=== PATIENT | female | born 1960 | race Caucasian/White ===

== ENCOUNTER → 2017-12-11 | Outpatient (CLI) | payer BC ==
--- NOTE | 2017-12-13 07:32 | MM ---
Reason for exam: screening (asymptomatic). Last mammogram was performed 1 year and 2 months ago. History: Patient is postmenopausal and had first child at age 38. Physical Findings: A clinical breast exam by your physician is recommended on an annual basis and results should be correlated with mammographic findings. MG 3D Screening Mammo W/Cad Bilateral CC and MLO view(s) were taken. Prior study comparison: October 18, 2016, bilateral MG 3d screening mammo w/cad. October 15, 2015, bilateral MG screening mammo w CAD. The breast tissue is heterogeneously dense. This may lower the sensitivity of mammography. No suspicious abnormality. No significant changes when compared with prior studies. ASSESSMENT: Negative, BI-RAD 1 RECOMMENDATION: Routine screening mammogram of both breasts in 1 year.
== END | disposition home or self-care (01) ==
LOC: RADMAMWWP 15:02
PROVIDERS: ATTEND Obstetrics & Gynecology
DX: Z12.31 Encounter for screening mammogram for malignant neoplasm of breast (principal)
CPT/HCPCS: 77063; 77067

== ENCOUNTER → 2017-12-11 | Outpatient (CLI) | payer BC ==
--- NOTE | 2017-12-11 16:16 | BD ---
EXAMINATION TYPE: MG DEXA axial skeleton. DATE OF EXAM: 12/11/2017 COMPARISON: NONE CLINICAL HISTORY: 56 year-old female age related osteoporosis without pathologic fracture Height: 62 Weight: 206.0 FRAX RISK QUESTIONS: Alcohol (3 or more units per day): no Family History (Parent hip fracture): no Glucocorticoids (More than 3mos): no (Ex: prednisone, prednisolone, methylprednisolone, dexamethasone, and hydrocortisone). History of Fracture in Adulthood: no Secondary Osteoporosis: 1. Type 1 Diabetes: no 2. Hyperthyroidism: no 3. Menopause before 45: no 4. Malnutrition: no 5. Chronic liver disease: no Rheumatoid Arthritis: no Current Tobacco Use: no RISK FACTORS HISTORY OF: Surgery to Spine/Hip(right/left)/Wrist (right/left): no Family History of Osteoporosis: yes Active: yes Diet low in dairy products/other sources of calcium: no Postmenopausal woman: age 54 Lost more than 2 inches in height since high school: no Frequent falls: no Poor Health: no Adrenal Insufficiency: no MEDICATIONS: blood pressure meds , vit b12 injections, vit d Thyroid Medications: thyroid How Lon years Additional History: EXAM MEASUREMENTS: Bone mineral densitometry was performed using the [employer] System. Bone mineral density as measured about the Lumbar spine is: ----- L1-L4(G/cm2): 1.027 T Score Values are as follows: ----- L2: -2.0 ----- L3: -0.9 ----- L4: -1.1 ----- L1-L4: -1.3 Bone mineral density has: decreased -2.2 % since study of: 08.16.2016 Bone mineral density about the R hip (g/cm2): 0.784 Bone mineral density about the L hip (g/cm2): 0.846 T Score values are as follows: -----R Neck: -1.8 -----L Neck: -1.4 -----R Total: -1.5 -----L Total: -1.1 Bone mineral density has: increased 1.6 % since study of: 08.16.2016 IMPRESSION: Osteopenia (T Score between -2.5 and -1). There is slightly increased risk of fracture and the patient may be considered for treatment. Re-Screen 2-5 years. NOTE: T-SCORE=SD OF THE YOUNG ADULT MEAN.
== END | disposition home or self-care (01) ==
LOC: RADBDWWP 15:05
PROVIDERS: ATTEND Internal Medicine
DX: M85.80 Other specified disorders of bone density and structure, unspecified site (principal)
CPT/HCPCS: 77080

== ENCOUNTER → 2019-01-15 | Outpatient (CLI) | payer BC ==
--- NOTE | 2019-01-15 10:47 | MM ---
Reason for exam: screening (asymptomatic). Last mammogram was performed 1 year and 1 month ago. History: Patient is postmenopausal and had first child at age 38. Physical Findings: A clinical breast exam by your physician is recommended on an annual basis and results should be correlated with mammographic findings. MG 3D Screening Mammo W/Cad Bilateral CC and MLO view(s) were taken. Prior study comparison: December 11, 2017, bilateral MG 3d screening mammo w/cad. October 18, 2016, bilateral MG 3d screening mammo w/cad. The breast tissue is heterogeneously dense. This may lower the sensitivity of mammography. No suspicious abnormality. No significant changes when compared with prior studies. ASSESSMENT: Negative, BI-RAD 1 RECOMMENDATION: Routine screening mammogram of both breasts in 1 year.
== END ==
LOC: RADMAMWWP 08:25
PROVIDERS: ATTEND Obstetrics & Gynecology
DX: Z12.31 Encounter for screening mammogram for malignant neoplasm of breast (principal)
CPT/HCPCS: 77063; 77067

== ENCOUNTER → 2019-07-01 | Outpatient (CLI) | payer BC ==
--- NOTE | 2019-07-01 15:49 | NM ---
EXAMINATION TYPE: NM parathyroid DATE OF EXAM: 07/01/2019 COMPARISON: 09/06/2010 HISTORY: Elevated PTH TECHNIQUE: Following administration of 24.7 mCi Tc99m Sestamibi. Anterior projection images of the neck and ches t were obtained 10 minutes and 3 hours post injection FINDINGS: Thyroid tracer washout: Delayed images demonstrate near-complete tracer washout from the thyroid. Parathyroid uptake: None. The two-hour delayed images do not demonstrate any focal abnormal persisten t uptake in the region of the parathyroid glands to suggest parathyroid adenoma. Normal uptake: There is physiological tracer uptake in the myocardium, liver, salivary glands, and th yroid gland. IMPRESSION: Normal parathyroid imaging study. No evidence for mediastinal uptake to suggest mediastinal parathyro id adenoma
== END | disposition home or self-care (01) ==
LOC: RADNMMAIN 11:10
PROVIDERS: ATTEND Internal Medicine
DX: E21.3 Hyperparathyroidism, unspecified (principal)
CPT/HCPCS: 78070; A9500

== ENCOUNTER → 2020-03-30 | Outpatient (CLI) | payer BC ==
--- NOTE | 2020-03-31 12:29 | MM ---
Reason for exam: screening (asymptomatic). Last mammogram was performed 1 year and 2 months ago. History: Patient is postmenopausal and had first child at age 38. Physical Findings: A clinical breast exam by your physician is recommended on an annual basis and results should be correlated with mammographic findings. MG 3D Screening Mammo W/Cad Bilateral CC and MLO view(s) were taken. Prior study comparison: January 15, 2019, bilateral MG 3d screening mammo w/cad. December 11, 2017, bilateral MG 3d screening mammo w/cad. The breast tissue is heterogeneously dense. This may lower the sensitivity of mammography. No suspicious abnormality. No significant changes when compared with prior studies. ASSESSMENT: Negative, BI-RAD 1 RECOMMENDATION: Routine screening mammogram of both breasts in 1 year.
== END | disposition home or self-care (01) ==
LOC: RADMAMWWP 10:55
PROVIDERS: ATTEND Internal Medicine
DX: Z12.31 Encounter for screening mammogram for malignant neoplasm of breast (principal)
CPT/HCPCS: 77063; 77067

== ENCOUNTER → 2020-08-21 | Outpatient (CLI) | payer BC ==
--- NOTE | 2020-08-21 15:03 | BD ---
EXAMINATION TYPE: Axial Bone Density DATE OF EXAM: 08/21/2020 COMPARISON: DEXA bone scan December 11, 2017 CLINICAL HISTORY: Postmenopausal female with known osteoporosis. Height: 62 Weight: 206.3 FRAX RISK QUESTIONS: Alcohol (3 or more units per day): no Family History (Parent hip fracture): no Glucocorticoids (More than 3mos): no (Ex: prednisone, prednisolone, methylprednisolone, dexamethasone, and hydrocortisone). History of Fracture in Adulthood: no Secondary Osteoporosis: 1. Type 1 Diabetes: no 2. Hyperthyroidism: no 3. Menopause before 45: no 4. Malnutrition: no 5. Chronic liver disease: no Rheumatoid Arthritis: no Current Tobacco Use: no RISK FACTORS HISTORY OF: Family History of Osteoporosis: yes Active: yes Diet low in dairy products/other sources of calcium: no Postmenopausal woman: age 49 Lost more than 2 inches in height since high school: no MEDICATIONS: vit d, lisinopril, atorvastatin Thyroid Medications: thyroid How Lon years Additional History: EXAM MEASUREMENTS: Bone mineral densitometry was performed using the [employer] System. Bone mineral density as measured about the Lumbar spine is: ----- L1-L4(G/cm2): 1.023 T Score Values are as follows: ----- L2: -2.0 ----- L3: -0.9 ----- L4: -0.9 ----- L1-L4: -1.3 Bone mineral density has: increased 0.7 % since study of: 12.11.2017 Bone mineral density about the R hip (g/cm2): 0.817 Bone mineral density about the L hip (g/cm2): 0.833 T Score values are as follows: -----R Neck: -1.6 -----L Neck: -1.5 -----R Total: -1.3 -----L Total: -0.5 Bone mineral density has: increased 5.2 % since study of: 12.11.2017 IMPRESSION: Osteopenia (T Score between -2.5 and -1) remains present. There remains slightly increased risk of fracture and the patient may be considered for treatment. Re-Screen 2-5 years. NOTE: T-SCORE=SD OF THE YOUNG ADULT MEAN.
== END | disposition home or self-care (01) ==
LOC: RADBDWWP 14:10
PROVIDERS: ATTEND Internal Medicine
DX: M85.80 Other specified disorders of bone density and structure, unspecified site (principal)
CPT/HCPCS: 77080

== ENCOUNTER → 2021-02-17 | Outpatient (CLI) | payer BC ==
--- NOTE | 2021-02-17 15:53 | NM ---
EXAMINATION TYPE: NM parathyroid w/spect DATE OF EXAM: 02/17/2021 COMPARISON: NONE HISTORY: Hyperparathyroidism TECHNIQUE: Following administration of 24.7 mCi Tc99m Sestamibi. Anterior projection images of the neck and ches t were obtained 10 minutes and 3 hours post injection. SPECT images of the neck and chest were obtai sybil and reconstructed in three axes. FINDINGS: Thyroid tracer washout: Delayed images demonstrate near-complete tracer washout from the thyroid. Parathyroid uptake: None. The two-hour delayed images do not demonstrate any focal abnormal persisten t uptake in the region of the parathyroid glands to suggest parathyroid adenoma. Normal uptake: There is physiological tracer uptake in the myocardium, liver, salivary glands, and th yroid gland. IMPRESSION: Normal parathyroid imaging study. No evidence for mediastinal uptake to suggest mediastinal parathyro id adenoma
== END | disposition home or self-care (01) ==
LOC: RADNMMAIN 11:14
PROVIDERS: ATTEND Internal Medicine
DX: E21.3 Hyperparathyroidism, unspecified (principal)
CPT/HCPCS: 78071; A9500

== ENCOUNTER → 2021-05-04 | Outpatient (CLI) | payer BC ==
--- NOTE | 2021-05-06 09:18 | MM ---
Reason for exam: screening (asymptomatic). Last mammogram was performed 1 year and 1 month ago. History: Patient is postmenopausal and had first child at age 38. Physical Findings: A clinical breast exam by your physician is recommended on an annual basis and results should be correlated with mammographic findings. MG 3D Screening Mammo W/Cad Bilateral CC and MLO view(s) were taken. Prior study comparison: March 30, 2020, bilateral MG 3d screening mammo w/cad. January 15, 2019, bilateral MG 3d screening mammo w/cad. There are scattered fibroglandular densities. ASSESSMENT: Negative, BI-RAD 1 RECOMMENDATION: Routine screening mammogram of both breasts in 1 year.
== END | disposition home or self-care (01) ==
LOC: RADMAMWWP 15:13
PROVIDERS: ATTEND Obstetrics & Gynecology
DX: Z12.31 Encounter for screening mammogram for malignant neoplasm of breast (principal); Z78.0 Asymptomatic menopausal state
CPT/HCPCS: 77063; 77067

== ENCOUNTER → 2022-02-23 | Outpatient (CLI) | payer BC ==
--- NOTE | 2022-02-23 14:01 | MM ---
Reason for exam: additional evaluation requested from prior study. Last mammogram was performed 10 months ago. History: Patient is postmenopausal and had first child at age 38. Physical Findings: A clinical breast exam by your physician is recommended on an annual basis and results should be correlated with mammographic findings. MG 3D Diag Mammo W/Cad SADIE Bilateral CC and MLO view(s) were taken. Prior study comparison: May 04, 2021, bilateral MG 3d screening mammo w/cad. March 30, 2020, bilateral MG 3d screening mammo w/cad. There are scattered fibroglandular densities. There is no discrete abnormality including area of concern right breast marked. No significant new findings when compared with previous films. Results were given to the patient verbally at the time of the exam. ASSESSMENT: Incomplete: need additional imaging evaluation, BI-RAD 0 RECOMMENDATION: Ultrasound of the right breast.
--- NOTE | 2022-02-23 14:03 | USB ---
Reason for exam: additional evaluation requested from abnormal screening. History: Patient is postmenopausal and had first child at age 38. Physical Findings: A clinical breast exam by your physician is recommended on an annual basis and results should be correlated with mammographic findings. US Breast Limited RT Right limited breast ultrasound including focal area of concern, retroareolar and axilla demonstrates a 1.5 x 2.3 x 1.4cm mixed lesion at 10 o'clock, 5cm from nipple, indistinct borders, correlates with palpable. Results were given to the patient verbally at the time of the exam. ASSESSMENT: Suspicious, BI-RAD 4 RECOMMENDATION: Ultrasound core biopsy of the right breast. Called Dr. Reyes's office with mammographic findings and has scheduled an appointment for the patient for 03/07/22 at 10:[address] Rutledge. Biopsy scheduled for 03/03/22 at 10 o'clock. PRELIMINARY REPORT CALLED AND FAXED TO DR. RUTLEDGE ON 02/23/22.
== END | disposition home or self-care (01) ==
LOC: RADMAMWWP 08:17
PROVIDERS: ATTEND Obstetrics & Gynecology
DX: N63.0 Unspecified lump in unspecified breast (principal); Z78.0 Asymptomatic menopausal state
CPT/HCPCS: 77062; 77066

== ENCOUNTER → 2022-04-12 | Outpatient (CLI) | payer BC ==
--- NOTE | 2022-04-12 14:40 | USB ---
Reason for Exam: Follow-up at short interval from prior study. Patient History: Menarche at age 12. First Full-Term at age 38. Late child-bearing (after 30). Postmenopausal. 03/01/2022, US discontinued breast bx RT on the right side. Risk Values: Susan 5 year model risk: 2.1%. NCI Lifetime model risk: 9.4%. Technique: Method: Targeted. Prior Study Comparison: 03/30/2020 Bilateral Screening Mammogram, [facility]. 05/04/2021 Bilateral Screening Mammogram, [facility]. 02/23/2022 Bilateral Diagnostic Mammogram, [facility]. Findings: The area of palpable concern of the right breast was scanned. A persistent nonshadowing hyperechoic nonvascular genic 2.2 cm lesion on the prior exam now measures approximately 1 cm and has reduced in size.. Overall Assessment: Probably benign, BI-RAD 3 Management: Diagnostic Breast Ultrasound of the right breast in 1 month. A clinical breast exam by your physician is recommended on an annual basis and results should be correlated with mammographic findings. Electronically signed and approved by: Noah King M.D. Radiologis
== END | disposition home or self-care (01) ==
LOC: RADUSWWP 14:08
PROVIDERS: ATTEND Obstetrics & Gynecology
DX: R92.8 Other abnormal and inconclusive findings on diagnostic imaging of breast (principal); Z78.0 Asymptomatic menopausal state

== ENCOUNTER → 2022-05-13 | Outpatient (CLI) | payer BC ==
--- NOTE | 2022-05-13 15:19 | USB ---
Reason for Exam: Follow-up at short interval from prior study. Patient History: Menarche at age 12. First Full-Term at age 38. Late child-bearing (after 30). Postmenopausal. 03/01/2022, US discontinued breast bx RT on the right side. Risk Values: Susan 5 year model risk: 2.1%. NCI Lifetime model risk: 9.4%. Technique: Method: Targeted. Prior Study Comparison: 03/30/2020 Bilateral Screening Mammogram, [facility]. 05/04/2021 Bilateral Screening Mammogram, [facility]. 02/23/2022 Bilateral Diagnostic Mammogram, [facility]. Findings: The upper outer quadrant of the right breast, the axilla of the left breast and the retroareolar of the left breast were scanned. Previously noted lesion is no longer visible. No distinct solid or cystic masses seen at this time.. Overall Assessment: Negative, BI-RAD 1 Management: Screening Mammogram of both breasts in 9 months. A clinical breast exam by your physician is recommended on an annual basis and results should be correlated with mammographic findings. Electronically signed and approved by: José Antonio Fernandez M.D. Radiologis
== END | disposition home or self-care (01) ==
LOC: RADUSWWP 14:53
PROVIDERS: ATTEND Student in an Organized Health Care Education/Training Program
DX: R92.8 Other abnormal and inconclusive findings on diagnostic imaging of breast (principal); Z78.0 Asymptomatic menopausal state

== ENCOUNTER 2022-09-13 13:30 | Emergency (ER) | payer BC, OTHER ==
[2022-09-13] MEDS ORDERED: HYDROcodone/APAP 5-325MG 1 EACH TAB PO STA ×2 (13:45→15:41)
[2022-09-13 13:54] VITALS: RESP 18; TEMP 96.9
--- NOTE | 2022-09-13 14:02 | ED ---
Fall HPI - General Chief Complaint: Fall Stated Complaint: Fall Time Seen by Provider: 09/13/22 13:32 Source: patient, RN notes reviewed Mode of arrival: EMS - History of Present Illness Initial Comments: This is a 61-year-old female who presents to the emergency department for a fall. 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 She fell backwards and injured her lower back, the back of her head, and her left wrist. Denies any dizziness, chest pain, or shortness of breath prior to the fall. Denies any loss of consciousness. She does not take any blood thinners. Most of the pain is in her left wrist and lower back. Denies any fevers, chills, sore throat, cough, dyspnea, chest pain, palpi tations, abdominal pain, nausea, vomiting, diarrhea, or headaches. MD Complaint: fall When Fall Occurred: 1 [address] [employer] Fall Occurred: work Loss of Consciousness: none Location: head, back Location - Extremities: Left: Forearm Context: tripped/slipped - Related Data Home Medications Medication Instructions Recorded Confirmed Ergocalciferol [Vitamin D2 50,000 unit PO WE 09/07/16 09/13/22 (DRISDOL)] Levothyroxine Sodium [Synthroid] 75 mcg PO DAILY 09/07/16 09/13/22 lisinopriL [Lisinopril] 5 mg PO DAILY 09/07/16 09/13/22 Atorvastatin [Lipitor] 40 mg PO HS 02/23/22 09/13/22 Previous Rx's Medication Instructions Recorded HYDROcodone/APAP 5-325MG [[place] 1 tab PO Q6HR PRN 3 Days #12 tab 09/13/22 5-325] Ibuprofen [Motrin] 800 mg PO Q8H PRN #20 tab 09/13/22 Allergies Allergy/AdvReac Type Severity Reaction Status Date / Time Penicillins Allergy Unknown Verified 09/13/22 14:31 Childhood shellfish derived [Shellfish] Allergy Nausea & Verified 09/13/22 14:31 Vomiting Review of Systems ROS Statement: Those systems with pertinent positive or pertinent negative responses have been documented in the HPI. ROS Other: All systems not noted in ROS Statement are negative. Past Medical History Past Medical History: Hyperlipidemia, Hypertension, Thyroid Disorder Additional Past Medical History / Comment(s): asthma as a child History of Any Multi-Drug Resistant Organisms: None Reported Additional Past Surgical History / Comment(s): dental surgery Past Anesthesia/Blood Transfusion Reactions: Family History of Problems w/ Anesthesia Additional Past Anesthesia/Blood Transfusion Reaction / Comment(s): father slow to come out of anesthesia Past Psychological History: No Psychological Hx Reported Smoking Status: Former smoker Past Alcohol Use History: Rare Past Drug Use History: None Reported - Past Family History Mother Family Medical History: Cancer Additional Family Medical History / Comment(s): LUNG Brother(s) Family Medical History: Cancer Additional Family Medical History / Comment(s): LUNG General Exam Limitations: physical limitation General appearance: alert, in no apparent distress Head exam: Present: other (Hematoma to the right side of the occiput) Eye exam: Present: normal appearance, PERRL, EOMI. Absent: scleral icterus, conjunctival injection, periorbital swelling Respiratory exam: Present: normal lung sounds bilaterally. Absent: respiratory distress, wheezes, rales, rhonchi, stridor Cardiovascular Exam: Present: regular rate, normal rhythm, normal heart sounds. Absent: systolic murmur, diastolic murmur, rubs, gallop, clicks Extremities exam: Present: other (Tenderness and swelling over the medial and lateral aspects of the left wrist. 2+ radial pulses and capillary refill less than 1 second bilaterally. Limited range of motion secondary to pain.) Back exam: Present: normal inspection, tenderness (lumbar spine). Absent: full ROM (secondary to pain) Neurological exam: Present: alert, oriented X3, CN II-XII intact Psychiatric exam: Present: normal affect, normal mood Skin exam: Present: warm, dry, intact, normal color. Absent: rash Course Vital Signs 09/13/22 09/13/22 13:34 15:58 Temperature 96.9 F L Pulse Rate 70 82 Respiratory 18 18 Rate Blood Pressure 115/65 119/60 O2 Sat by Pulse 96 Oximetry Procedures - Orthopedic Splinting/Casting Injury #1 Side: left Upper Extremity Injury Location: wrist Upper Extremity Immobilizer: volar splint Medical Decision Making - Medical Decision Making This is a 61-year-old female who presents to the emergency department for a fall. X-ray of the left wrist obtained, and on my interpretation there is an impacted fracture of the distal radius. There also appears to be an avulsion fracture of the ulnar styloid. X-ray of the lumbar spine obtained as well, and on my interpretation this reveals a compression fracture of L1. The radiologist states that the age is indeterminate. Computed tomography scan of the brain and C-spine obtained as well, I do not identify any signs of a skull fracture, intracranial hemorrhage, or mass effect. Findings discussed with the patient. She was put in a volar splint for the distal radius fracture. Information for orthopedic follow-up was provided for the radial fracture and the lumbar compression fracture, however we discussed that this may have been from an injury prior to the fall, there is no way to know for sure based on our evaluation here. Instructed her to apply ice for 10-15 minutes every 2-3 hours and to alternate with ibuprofen and Tylenol for the pain. Prescription for ibuprofen 800 mg provided. She was also given a short course of [place], which I advised she use very sparingly when her pain is the most severe, and I advised she avoid driving or operating machinery when taking this. Recommended she avoid any excess bending or physical activity for the meantime due to the compression fracture until told otherwise by orthopedics. Return precautions reviewed in depth, the patient is instructed to return to the emergency department with any new, worsening, or concerning symptoms. Patient verbalized understanding. This case was discussed in detail with the attending ED physician. Presentation, findings, and treatment plan discussed in detail as well. - Radiology Data Radiology results: report reviewed, image reviewed Disposition Clinical Impression: Fall, Head contusion, Distal radius fracture, left, Compression fracture of L1 lumbar vertebra Disposition: HOME SELF-CARE Instructions (If sedation given, give patient instructions): Wrist Fracture in Adults (ED), Vertebral Compression Fracture (ED), Splint Care (ED) Additional Instructions: Return to the emergency department with any new, worsening, or concerning symptoms. Ice the wrist for 10-15 minutes every 2-3 hours and keep it elevated. Alternate with ibuprofen and Tylenol for pain relief and take the [place] when your pain is the most severe. Contact orthopedics as listed below for a follow- up appointment. You do also have a compression fracture in your lower back, which may be old or new. Be sure to discuss this with orthopedics as well. Avoid any excess bending or high impact activities for the meantime. Follow up with your primary care provider in 1-2 days. Prescriptions: Ibuprofen [Motrin] 800 mg PO Q8H PRN #20 tab PRN Reason: Pain HYDROcodone/APAP 5-325MG [[place] 5-325] 1 tab PO Q6HR PRN 3 Days #12 tab PRN Reason: Pain Is patient prescribed a controlled substance at d/c from ED?: Yes When asked, does pt state using other controlled substances?: No If prescribed controlled substance>3 days was MAPS reviewed?: Prescribed <3 Days Referrals: Sinai Zamudio MD [Primary Care Provider] - 1-2 days Deb Mendieta DO [Doctor of Osteopathic Medicine] - 1-2 days
--- NOTE | 2022-09-13 14:16 | XR ---
EXAM TYPE: LUMBAR SPINE X RAY SERIES COMPARISON: NONE HISTORY: Pain TECHNIQUE: 4 views are submitted. FINDINGS: Alignment is anatomic. The pedicles are intact. The transverse processes are intact. There is diff use osteopenia with multilevel degenerative disc disease. As the grade 1 anterolisthesis of L3 relati ve to L4. There is a mild superior endplate compression fracture of L1. Diffuse osteopenia. IMPRESSION: 1. Multilevel degenerative disc disease. 2. There is a mild superior endplate compression fracture L1 of indeterminate age. Recommend follow-u p MRI.
--- NOTE | 2022-09-13 14:19 | XR ---
EXAMINATION TYPE: XR wrist complete LT DATE OF EXAM: 09/13/2022 COMPARISON: NONE HISTORY: Pain TECHNIQUE: Three views submitted. FINDINGS: There is a comminuted intra-articular fracture of the distal radius. Avulsion fracture of the ulnar s tyloid. Diffuse osteopenia. There is adjacent soft tissue edema. IMPRESSION: 1. Comminuted impacted intra-articular fracture distal radius. 2. Avulsion fracture ulnar styloid.
--- NOTE | 2022-09-13 14:44 | CT ---
EXAMINATION TYPE: CT brain cspine wo con CT DLP: 1920.8 mGycm, Automated exposure control for dose reduction was used. DATE OF EXAM: 09/13/2022 2:25 PM COMPARISON: None.. CLINICAL INDICATION:Female, 61 years old with history of Fall; TECHNIQUE: Brain: Multiple axial CT images of the brain were obtained without IV contrast. Cspine: Axial CT images from the skull base to the inferior aspect of T2 we obtained without intraven ous contrast. Coronal and sagittal reformatted images were also reviewed. FINDINGS: Brain: Extra-axial spaces: No abnormal extra-axial fluid collections. Ventricular system: Within normal limits Cerebral parenchyma: No acute intraparenchymal hemorrhage or mass effect. The rogers-white junction is well differentiated. Cerebellum: Unremarkable. Mass effect: No evidence of midline shift. Intracranial vasculature: unremarkable Soft tissues: Normal. Calvarium/osseous structures: No depressed skull fracture. Paranasal sinuses and mastoid air cells: The mastoid air cells are clear. Minimal mucosal thickening of the right maxillary sinus. Visualized orbits: Orbital contents are intact. Cervical spine: Fracture: None. Osseous structures: Unremarkable Vertebral alignment: Degenerative disc disease at C5-C6 with disc space narrowing, endplate sclerosis , and osteophytosis Spinal canal/Neural Foramina: Disc osteophyte complex at C5-C6 with at least mild spinal canal narrow ing. No evidence for significant neural foraminal stenosis. Neck soft tissues: Prevertebral soft tissues are within normal limits. Other: The airway is patent. The lung apices are clear. IMPRESSION: 1. No acute intracranial process. 2. No evidence of cervical spine fracture. 3. Mild multilevel degenerative disc disease at C5-C6.
[2022-09-13 16:01] VITALS: BP 119/60; PULSE 82
== END 2022-09-13 16:03 | disposition home or self-care (01) ==
LOC: EC 13:30
DX: S52.502A Unspecified fracture of the lower end of left radius, initial encounter for closed fracture (principal); S32.019A Unspecified fracture of first lumbar vertebra, initial encounter for closed fracture; S00.93XA Contusion of unspecified part of head, initial encounter; E78.5 Hyperlipidemia, unspecified; I10 Essential (primary) hypertension; E07.9 Disorder of thyroid, unspecified; Z79.890 Hormone replacement therapy; Z79.02 Long term (current) use of antithrombotics/antiplatelets; Z88.0 Allergy status to penicillin; Z91.013 Allergy to seafood; Z79.899 Other long term (current) drug therapy; Z87.891 Personal history of nicotine dependence; W01.0XXA Fall on same level from slipping, tripping and stumbling without subsequent striking against object, initial encounter; Y92.219 Unspecified school as the place of occurrence of the external cause
CPT/HCPCS: 29125; 70450; 72100; 72125; 99284

== ENCOUNTER → 2023-02-14 | Outpatient (CLI) | payer BC ==
--- NOTE | 2023-02-15 07:47 | MM ---
Reason for Exam: Screening (asymptomatic). Last screening mammogram was performed 11 month(s) ago. Patient History: Menarche at age 12. First Full-Term at age 38. Late child-bearing (after 30). Postmenopausal. 03/01/2022, US discontinued breast bx RT on the right side. Risk Values: Susan 5 year model risk: 2.2%. NCI Lifetime model risk: 9.1%. Prior Study Comparison: 03/30/2020 Bilateral Screening Mammogram, [facility]. 05/04/2021 Bilateral Screening Mammogram, [facility]. 02/23/2022 Bilateral Diagnostic Mammogram, [facility]. Tissue Density: The breast tissue is heterogeneously dense. This may lower the sensitivity of mammography. Findings: Analyzed By CAD. There are benign-appearing bilateral axillary lymph nodes redemonstrated. There is no suspicious group of microcalcifications or new suspicious mass in either breast. Overall Assessment: Negative, BI-RAD 1 Management: Screening Mammogram of both breasts in 1 year. A clinical breast exam by your physician is recommended on an annual basis and results should be correlated with mammographic findings. Some advise bilateral breast ultrasound surveillance in patients with background dense tissue. Electronically signed and approved by: Amandeep Sibley M.D.
== END | disposition home or self-care (01) ==
LOC: RADMAMWWP 16:02
PROVIDERS: ATTEND Internal Medicine
DX: Z12.31 Encounter for screening mammogram for malignant neoplasm of breast (principal); Z78.0 Asymptomatic menopausal state
CPT/HCPCS: 77063; 77067

== ENCOUNTER → 2023-08-22 | Outpatient (CLI) | payer BC ==
--- NOTE | 2023-08-22 12:26 | US ---
EXAMINATION TYPE: US kidneys/renal and bladder DATE OF EXAM: 08/22/2023 COMPARISON: CT 2015 CLINICAL INDICATION: Female, 62 years old with history of N18.1 CHRONIC KIDNEY DISEASE, STAGE 1; CKD stage 1. EXAM MEASUREMENTS: Right Kidney: 10.4 x 4.8 x 4.7 cm Left Kidney: 11.4 x 5.0 x 5.2 cm Right Kidney: Renal pelvis appears dilated. Left Kidney: Anechoic area seen lower pole: 1.4 x 0.9 x 1.0 cm may be a small peripelvic cyst. Bladder: Appears wnl Bilateral Jets seen: Yes IMPRESSION: 1. Small left renal peripelvic cysts
--- NOTE | 2023-08-22 13:27 | BD ---
EXAMINATION TYPE: Axial Bone Density DATE OF EXAM: 08/22/2023 CLINICAL HISTORY: 62 years old Female. ICD-10 CODE: M85.851 OSTEOPENIA RT HIP Height: 61 Weight: 159 FRAX RISK QUESTIONS: Family History (Parent hip fracture): yes RISK FACTORS HISTORY OF: hx of foot fx as an adult History of Wrist Fracture: left wrist 2021 Family History of Osteoporosis: yes Postmenopausal woman: at 49 Hyperparathyroidism: no Adrenal Insufficiency: no MEDICATIONS: Thyroid Medications: yes, for about 5 yrs, synthroid product Additional Medications: bp meds, vit d, statin for cholesterol, Additional History: weight loss, cholesterol, hypertension, EXAM MEASUREMENTS: Bone mineral densitometry was performed using the [facility]. Bone mineral density as measured about the Lumbar spine is: ----- L1-L4(G/cm2): 1.007 T Score Values are as follows: ----- L1: -2.1 ----- L2: -1.6 ----- L3: -0.9 ----- L4: -1.5 ----- L1-L4: -1.4 Z Score Values are as follows: ----- L1: -0.9 ----- L2: -0.3 ----- L3: 0.4 ----- L4: -0.3 ----- L1-L4: -0.2 Bone mineral density has: Decreased -1.6% since study of: 08.21.2020 Bone mineral density about the R hip (g/cm2): 0.808 Bone mineral density about the L hip (g/cm2): 0.905 T Score values are as follows: -----R Neck: -1.9 -----L Neck: -1.5 -----R Total: -1.6 -----L Total: -0.8 Z Score values are as follows: -----R Neck: -0.7 -----L Neck: -0.3 -----R Total: -0.6 -----L Total: 0.1 Bone mineral density has: Decreased -3.8% since study of: 08.21.2020 FRAX%s: The graph provided illustrates a 30.1% chance for a major osteoporotic fx and a 2.4% chance f or the hips probability for fx in 10 years time. IMPRESSION: Osteopenia (T Score between -2.5 and -1). There is slightly increased risk of fracture and the patient may be considered for treatment. Re-Screen 2-5 years. NOTE: T-SCORE=SD OF THE YOUNG ADULT MEAN.
== END | disposition home or self-care (01) ==
LOC: RADUSWWP 08:58
PROVIDERS: ATTEND Internal Medicine
DX: N18.1 Chronic kidney disease, stage 1 (principal); N28.1 Cyst of kidney, acquired; M85.89 Other specified disorders of bone density and structure, multiple sites; Z78.0 Asymptomatic menopausal state
CPT/HCPCS: 76770; 77080

== ENCOUNTER → 2024-04-09 | Outpatient (CLI) | payer BC ==
--- NOTE | 2024-04-11 13:09 | MM ---
Reason for Exam: Screening (asymptomatic). Last mammogram was performed 1 year(s) and 2 month(s) ago. Patient History: Menarche at age 12. First Full-Term at age 38. Late child-bearing (after 30). Postmenopausal. 03/01/2022, US discontinued breast bx RT on the right side. Risk Values: Susan 5 year model risk: 2.2%. NCI Lifetime model risk: 8.9%. Prior Study Comparison: 05/04/2021 Bilateral Screening Mammogram, [facility]. 02/23/2022 Bilateral Diagnostic Mammogram, [facility]. 02/14/2023 Bilateral MG 3D screening mammo w/cad, [facility]. Tissue Density: The breasts are heterogeneously dense, which may obscure small masses. Findings: Analyzed By CAD. Right breast: There is no suspicious group of microcalcifications or new suspicious mass. Left breast: Focal asymmetry left breast upper outer quadrant 6.8 cm from the nipple. Overall Assessment: Incomplete: need additional imaging evaluation, BI-RAD 0 Management: Diagnostic Mammogram of the left breast. [facility] will attempt to contact patient to return for supplemental views and ultrasound if indicated. Patient should continue monthly self-breast exams. A clinical breast exam by your physician is recommended on an annual basis. This exam should not preclude additional follow-up of suspicious palpable abnormalities. Note on Susan scores and lifetime risk: 1. A Susan score greater than 3% is considered moderate risk. If this is the case, consider specialist referral to assess eligibility for a risk reducing agent. 2. If overall lifetime risk for the development of breast cancer is 20% or higher, the patient may qualify for future screening with alternating mammogram and breast MRI. Electronically signed and approved by: Dagoberto Argueta DO
== END | disposition home or self-care (01) ==
LOC: RADMAMWWP 15:13
PROVIDERS: ATTEND Internal Medicine
DX: Z12.31 Encounter for screening mammogram for malignant neoplasm of breast (principal); Z78.0 Asymptomatic menopausal state
CPT/HCPCS: 77063; 77067

== ENCOUNTER → 2024-04-12 | Outpatient (CLI) | payer BC ==
--- NOTE | 2024-04-12 08:15 | MM ---
Reason for Exam: Additional evaluation requested from abnormal screening. Last screening mammogram was performed less than 1 month ago. Patient History: Menarche at age 12. First Full-Term at age 38. Late child-bearing (after 30). Postmenopausal. 03/01/2022, US discontinued breast bx RT on the right side. Risk Values: Susan 5 year model risk: 2.2%. NCI Lifetime model risk: 8.9%. Prior Study Comparison: 02/23/2022 Bilateral Diagnostic Mammogram, [facility]. 02/14/2023 Bilateral MG 3D screening mammo w/cad, [facility]. 04/09/2024 Bilateral MG 3D screening mammo w/cad, [facility]. Tissue Density: Left: The breasts are heterogeneously dense, which may obscure small masses. Findings: Analyzed By CAD. Under compression the focal asymmetry appears to disperse normally. No underlying spiculated or lobulated mass is identified. No suspicious groups of microcalcifications, spiculated or lobular masses, architectural distortion or other secondary signs of malignancy are mammographically apparent. Overall Assessment: Probably benign, BI-RAD 3 Management: Diagnostic Mammogram of the left breast in 6 months. A negative mammogram report should not preclude additional follow up of suspicious palpable abnormalities. Patient should continue monthly self breast exam. A clinical breast exam by your physician is recommended on an annual basis and results should be correlated with mammographic findings. Note on Susan scores and lifetime risk: 1. A Susan score greater than 3% is considered moderate risk. If this is the case, consider specialist referral to assess eligibility for a risk reducing agent. 2. If overall lifetime risk for the development of breast cancer is 20% or higher, the patient may qualify for future screening with alternating mammogram and breast MRI. Electronically signed and approved by: Afshin Jenkins D.O. Radiologis
== END | disposition home or self-care (01) ==
LOC: RADMAMWWP 07:22
PROVIDERS: ATTEND Internal Medicine
DX: R92.332 Mammographic heterogeneous density, left breast (principal); R92.8 Other abnormal and inconclusive findings on diagnostic imaging of breast; Z78.0 Asymptomatic menopausal state
CPT/HCPCS: 77061; 77065

== ENCOUNTER → 2024-05-14 | Outpatient (CLI) | payer BC ==
[2024-05-14 10:04] VITALS: BP 107/72; PULSE 85; RESP 17; TEMP 98
--- NOTE | 2024-05-14 11:11 | P.HPOB ---
History of Present Illness H&P Date: 05/14/24 Chief Complaint: The patient is here for her routine gynecologic exam. This is a 63-year-old -1-1-1 with an LMP of 2009. The patient is here to establish with this office. It has been about 1 and half years since her last pelvic exam. She previously saw Dr. Reyes for her gynecologic care and saw him since approximately 1998. She states she has had regular pelvic exams and regular Pap smears. She has no history of cervical neoplasia. She is without gynecologic complaints and denies any postmenopausal bleeding. Review of Systems She has lost about 95 pounds over the past 2 years. Most of this weight loss was done while she was on Wegovy. She denies respiratory, cardiac, or GI problems. Past Medical History Past Medical History: Asthma, Hyperlipidemia, Hypertension, Sleep Apnea/CPAP/B IPAP, Thyroid Disorder Additional Past Medical History / Comment(s): asthma as a child. Parathyroid problems not requiring medication. Osteopenia. PAST LONG TERM CARE ADMINISTRATOR HISTORY: She has no history of STDs. History of Any Multi-Drug Resistant Organisms: None Reported Additional Past Surgical History / Comment(s): dental surgery. Wrist surgery 2021. Colonoscopy. Past Anesthesia/Blood Transfusion Reactions: Family History of Problems w/ Anesthesia Additional Past Anesthesia/Blood Transfusion Reaction / Comment(s): father slow to come out of anesthesia Past Psychological History: No Psychological Hx Reported Smoking Status: Former smoker Past Alcohol Use History: Rare Additional Past Alcohol Use History / Comment(s): started smoking age 13 quit age 30 1ppd Past Drug Use History: None Reported - Past Family History Mother Family Medical History: Cancer, Hypertension, Thyroid Disorder Additional Family Medical History / Comment(s): LUNG cancer. She denies family history of cancer of the breast, uterus, ovaries, or colon Brother(s) Family Medical History: Cancer Additional Family Medical History / Comment(s): LUNG cancer. Father Family Medical History: Diabetes Mellitus, Hypertension, Myocardial Infarction (PR) Medications and Allergies Home Medications Medication Instructions Recorded Confirmed Type Levothyroxine Sodium [Synthroid] 75 mcg PO DAILY 09/07/16 05/14/24 History lisinopriL [Lisinopril] 5 mg PO DAILY 09/07/16 05/14/24 History Atorvastatin [Lipitor] 40 mg PO HS 02/23/22 05/14/24 History Semaglutide [Wegovy] 1 mg INJ WEEKLY 05/14/24 05/14/24 History Allergies Allergy/AdvReac Type Severity Reaction Status Date / Time Penicillins Allergy Unknown Verified 05/14/24 10:00 Childhood shellfish derived [Shellfish] Allergy Nausea & Verified 05/14/24 10:00 Vomiting Exam Vital Signs Temp Pulse Resp BP Pulse Ox 05/14/24 10:01 98 F 85 17 107/72 98 Intake and Output 05/13/24 05/14/24 05/14/24 22:59 06:59 14:59 Other: Weight 60.781 kg Height 5 feet 2 inches, weight 134 pounds, BMI 24.5. This is a well-developed well-nourished white female who is alert and oriented times 3 in no acute distress. HEENT: Within normal limits. NECK: Supple without mass or thyromegaly. CHEST AND LUNGS: Clear to auscultation. HEART: Regular rate and rhythm. BREASTS: Are without mass or discharge. AXILLARY EXAM: Negative for adenopathy. BACK: Negative for CVA tenderness. ABDOMEN: Soft, nontender, without palpable masses. PELVIC EXAM: Normal external genitalia with mild atrophy. Cervix and vagina appear normal with mild atrophy. Cervix is anterior. There is no unusual discharge. There is no evidence of prolapse. The uterus is retroverted, nongravid size and nontender. There are no palpable adnexal masses or tenderness. RECTAL EXAM: Rectovaginal exam is negative for mass or tenderness and is negative for occult blood. EXTREMITIES: Nontender. IMPRESSION: 1. 63-year-old menopausal female with normal gynecologic exam. 2. History of osteopenia PLAN: 1. Pap smear cotest was performed. If this is negative we will plan on discontinuing Pap smears since she has no history of cervical neoplasia and has had regular exams with Dr. Reyes since 1998. 2. Self breast awareness was discussed with the patient. We have also discussed symptoms associated with inflammatory breast cancer. 3. Screening mammogram done on 04/09/2024 did require a left breast workup which was done on 04/12/2024 and was probably benign. 6-month diagnostic left mammogram was recommended. The order slip was given to the patient for this. 4. Osteoporosis prevention was discussed. I have stressed the importance of adequate calcium, vitamin D and regular exercise. Recommended amounts of calcium and vitamin D were also discussed. Her last bone density test was done on 08/22/2023. I have recommended that she repeat this after 2 to 3 years. 5. Colorectal cancer screening was most recently done with [facility]. She will continue to do this through her PCP. 6. She was advised to return in one year for her annual well woman exam.
== END ==
LOC: WWCWWP 09:47
PROVIDERS: ATTEND Obstetrics & Gynecology
DX: Z01.419 Encounter for gynecological examination (general) (routine) without abnormal findings (principal); M85.80 Other specified disorders of bone density and structure, unspecified site; Z78.0 Asymptomatic menopausal state; Z88.0 Allergy status to penicillin; Z91.013 Allergy to seafood; Z87.891 Personal history of nicotine dependence

== ENCOUNTER → 2024-09-17 | Outpatient (CLI) | payer BC ==
--- NOTE | 2024-09-17 16:28 | US ---
EXAMINATION TYPE: US carotid duplex BILAT DATE OF EXAM: 09/17/2024 COMPARISON: NONE CLINICAL INDICATION: Female, 63 years old with history of I65.23 STENOSIS I25.10 HEART DISEASE; steno sis Additional History: .... TECHNIQUE: Grayscale, color Doppler and spectral Doppler evaluation of the bilateral carotid systems and vertebral arteries. Indirect Doppler criteria was utilized. FINDINGS: EXAM MEASUREMENTS: RIGHT: Peak Systolic Velocity (PSV) cm/sec ----- Right CCA: 72.8 ----- Right ICA: 101 ----- Right ECA: 76 ICA/CCA ratio: 1.4 RIGHT: End Diastole cm/sec ----- Right CCA: 19.5 ----- Right ICA: 40.9 ----- Right ECA: 13.6 LEFT: Peak Systolic Velocity (PSV) cm/sec ----- Left CCA: 78 ----- Left ICA: 84.5 ----- Left ECA: 61.1 ICA/CCA ratio: 1.1 LEFT: End Diastole cm/sec ----- Left CCA: 19.5 ----- Left ICA: 33.8 ----- Left ECA: 14.9 VERTEBRALS (direction of flow): Right Vertebral: Antegrade Left Vertebral: Antegrade Rhythm: Normal TIN FLOPPER NOTES: No significant stenosis seen Color Doppler imaging shows patency with blood flow throughout the carotid artery. Spectral waveforms are within normal limits. IMPRESSION: No ultrasound evidence for hemodynamically significant stenosis of the bilateral visualized carotid a rterial systems. Criteria for Assigning % of Stenosis / Diameter reduction (Estimation based on the indirect measurements of the internal carotid artery velocities (ICA PSV). 1. Normal (no stenosis)=ICA PSV < 125 cm/s: ratio < 2.0: ICA EDV<40 cm/s. 2. Less than 50% stenosis=ICA PSV < 125 cm/s: ratio < 2.0: ICA EDV<40 cm/s. 3. 50 to 69% stenosis=ICA PSV of 125 to 230 cm/s: ration 2.0 ? 4.0: ICA EDV 40-100 cm/s. 4. Greater than 70% stenosis to near occlusion= ICA PSV > 230 cm/s: ratio > 4.0: ICA EDV > 100 cm/s. 5. Near occlusion= ICA PSV velocities may be low or undetectable: variable ratio and ICA EDV. 6. Total occlusion=unable to detect flow. [facility], , 09/17/2024 4:26 PM
--- NOTE | 2024-09-18 07:08 | CA ---
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 67 - 155 / 56 - 104 cm??? LV Systolic Volume MOD BP 40.1 cm??? - 58 / 19 - 49 cm??? LV Ejection Fraction MOD BP 47.5 % >= 55 % LV Cardiac Index MOD BP 1618.0 cm???/min???m??? LV Diastolic Volume MOD 4C 98.5 cm??? LV Systolic Volume MOD 4C 50.7 cm??? LV Ejection Fraction MOD 4C 48.5 % LV Cardiac Index MOD 4C 2130.4 cm???/min???m??? LV Diastolic Length 4C 7.8 cm LV Systolic Length 4C 6.6 cm LV Diastolic Volume MOD 2C 52.7 cm??? LV Systolic Volume MOD 2C 31.7 cm??? LV Ejection Fraction MOD 2C 39.9 % LV Cardiac Index MOD 2C 939.0 cm???/min???m??? LV Diastolic Length 2C 6.8 cm LV Systolic Length 2C 5.9 cm LA Volume 39.5 cm??? - 58 / 22 - 52 cm??? LA Volume Index 24.5 cm???/m??? 16 - 28 cm???/m??? M-MODE Aortic Root Diameter MM 3.0 cm AV Cusp Separation MM 2.0 cm DOPPLER AV Peak Velocity 113.3 cm/s AV Peak Gradient 5.1 mmHg MV Area PHT 2.5 cm??? Mitral E Point Velocity 55.9 cm/s Mitral A Point Velocity 77.4 cm/s Mitral E to A Ratio 0.7 MV Deceleration Time 302.7 ms TR Peak Velocity 210.4 cm/s TR Peak Gradient 17.7 mmHg Right Ventricular Systolic Press 22.6 mmHg FINDINGS Left Ventricle Left ventricular ejection fraction is estimated at 45-50 %. Mildly decreased left ventricular ejection fraction. Inferior and septal hypokinesis. Left ventricular cavity size normal. Left ventricular wall thickness normal. Right Ventricle Normal right ventricular size and function. Right ventricular systolic pressure within normal limits. Right Atrium Normal right atrial size. No right atrial thrombus or mass seen. Left Atrium Normal left atrial size. No left atrial thrombus or mass present. Mitral Valve Structurally normal mitral valve. Mild mitral regurgitation. Aortic Valve Trileaflet aortic valve. No aortic valve stenosis or regurgitation. Tricuspid Valve Structurally normal tricuspid valve. Mild tricuspid regurgitation. Pulmonic Valve Pulmonic valve not well visualized. Trace pulmonic regurgitation. Pericardium No pericardial or pleural effusion. Aorta Normal size aortic root and proximal ascending aorta. CONCLUSIONS 1. Mildly impaired left ventricular systolic function with segmental wall motion abnormality 2. Mild mitral and tricuspid regurgitation Previewed by: Dr. Rika Dalton MD (Electronically Signed) Final Date: 18 September 2024 07:07
== END | disposition home or self-care (01) ==
LOC: RADUSWWP 15:45
PROVIDERS: ATTEND Internal Medicine
DX: I65.23 Occlusion and stenosis of bilateral carotid arteries (principal)
CPT/HCPCS: 93306; 93880

== ENCOUNTER → 2024-10-14 | Outpatient (CLI) | payer BC ==
--- NOTE | 2024-10-14 13:25 | MM ---
Reason for Exam: Follow-up at short interval from prior study. Last screening mammogram was performed 6 month(s) ago. Patient History: Menarche at age 12. First Full-Term at age 38. Late child-bearing (after 30). Postmenopausal. 03/01/2022, US discontinued breast bx RT on the right side. Risk Values: Susan 5 year model risk: 2.2%. NCI Lifetime model risk: 8.9%. Prior Study Comparison: 02/14/2023 Bilateral MG 3D screening mammo w/cad, [facility]. 04/09/2024 Bilateral MG 3D screening mammo w/cad, [facility]. 04/12/2024 Left MG 3D work up w/cad , [facility]. Tissue Density: Left: The breasts are heterogeneously dense, which may obscure small masses. Findings: Analyzed By CAD. The previously seen upper outer quadrant focal asymmetry has not persisted. Findings compatible superimposition shadow. No significant change. Overall Assessment: Benign, BI-RAD 2 Management: Screening Mammogram of both breasts in 6 months. Results were given to the patient verbally at the time of exam. Patient should continue monthly self-breast exams. A clinical breast exam by your physician is recommended on an annual basis. This exam should not preclude additional follow-up of suspicious palpable abnormalities. Note on Susan scores and lifetime risk: 1. A Susan score greater than 3% is considered moderate risk. If this is the case, consider specialist referral to assess eligibility for a risk reducing agent. 2. If overall lifetime risk for the development of breast cancer is 20% or higher, the patient may qualify for future screening with alternating mammogram and breast MRI. [facility], , 10/14/2024 1:21 PM. Electronically signed and approved by: Hanny Landin M.D. Radiologist
== END | disposition home or self-care (01) ==
LOC: RADMAMWWP 12:51
PROVIDERS: ATTEND Obstetrics & Gynecology
DX: R92.8 Other abnormal and inconclusive findings on diagnostic imaging of breast (principal); Z78.0 Asymptomatic menopausal state; R92.332 Mammographic heterogeneous density, left breast
CPT/HCPCS: 77061; 77065

== ENCOUNTER → 2024-11-04 | Outpatient (CLI) | payer BC ==
--- NOTE | 2024-11-04 16:45 | NM ---
EXAMINATION TYPE: NM parathyroid w/spect DATE OF EXAM: 11/04/2024 COMPARISON: NONE CLINICAL INDICATION: Female, 63 years old with history of R79.89 elevated parathyroid levels; TECHNIQUE: Following administration of 25.6 mCi Tc99m Sestamibi. Anterior projection images of the neck and ches t were obtained 10 minutes and 3 hours post injection. SPECT images of the neck and chest were obtai sybil and reconstructed in three axes. FINDINGS: Thyroid tracer washout: Delayed images demonstrate near-complete tracer washout from the thyroid. Parathyroid uptake: None. The two-hour delayed images do not demonstrate any focal abnormal persisten t uptake in the region of the parathyroid glands to suggest parathyroid adenoma. Normal uptake: There is physiological tracer uptake in the myocardium, liver, salivary glands, and th yroid gland. IMPRESSION: Normal parathyroid imaging study. No evidence for mediastinal uptake to suggest mediastinal parathyro id adenoma [facility], , 11/04/2024 4:42 PM
== END | disposition home or self-care (01) ==
LOC: RADNMMAIN 10:45
PROVIDERS: ATTEND Internal Medicine
DX: R79.89 Other specified abnormal findings of blood chemistry (principal)
CPT/HCPCS: 78071; A9500

== ENCOUNTER → 2024-12-20 | Outpatient (CLI) | payer BC, MEDICARE ==
--- NOTE | 2024-12-20 12:39 | NM ---
EXAMINATION TYPE: NM stress cardiolite complete DATE OF EXAM: 12/20/2024 COMPARISON: NONE CLINICAL INDICATION: Female, 64 years old with history of I51.9 HEART DISEASE, UNSPECIFIED; history o f hypertension and hypercholesterolemia. TECHNIQUE: After the intravenous administration of 10.0 mCi Tc 99m Sestamibi - Rest images obtained 45 minutes post injection. The patient exercised using a AVEL protocol and 1 minute prior to peak exercise was injected with 26.2 mCi Tc 99m Sestamibi - Stress images obtained 55 minutes post injecti on. FINDINGS: Targeted heart rate was achieved during performance of the study. Review of stress and rest SPECT meghana ges demonstrates no distinct perfusion abnormality. Gated analysis shows normal wall motion with an estimated left ventricular ejection fraction of 60 %. IMPRESSION: No scintigraphic evidence for reversible ischemia [facility], , 12/20/2024 12:37 PM
--- NOTE | 2024-12-20 12:42 | CA ---
Exercise Nuclear Stress Test Report Name: Ml Alvarado Exam Date: 12/20/2024 09:52 Exam Location: [place] [facility] Ht (in): 62 Wt (lb): 132 BSA: 1.60 Ordering Phys: Sinai Zamudio MD Referring Phys: Sinai Zamudio MD Technologist: Reyes Ramirez Age: 64 Gender: F : 1960 Procedure CPT: Indications: I51.9 HEART DISEASE, UNSPECIFIED ICD-10 Codes: Patient History: Medications: LISINOPRIL, LEVOTHYROXINE, ATORVASTATIN, WEGOVEY Meds past 24 hrs: Pretest Chest Pain: STRESS TEST Jesus Protocol Exercise Duration (min:sec): 09:[address] Depressions (mm): Angina Score: Guardado Score: Resting HR (bpm): 71 Peak HR (bpm): 161 Resting BP (mmHg): 114 / 67 Peak BP (mmHg): 161 / 87 MPHR: 155 Target HR: 132 % MPHR: 104 METS: 11.2 Total Dose: Peak Dose: Atropine: Double Product: 91855 BP Response: Stress Termination: Reached target heart rate Stress Symptoms: No chest pain or symptoms or excessive shortness of breath or palpitation with treadmill exercise protocol. Stress Summary: ECG ANALYSIS Resting ECG: Sinus bradycardia heart rate 53 bpm, normal axis Stress EC mm flat ST depressions inferolateral leads with peak stress CONCLUSIONS Good exercise tolerance achieving 11.2 METS Abnormal ECG response to treadmill exercise Normal hemodynamic and clinical response to treadmill exercise Please refer to the nuclear portion of the stress test for the complete interpretation of the study Dr Josemanuel Roche (Electronically Signed) Final Date: 20 December 2024 12:42
== END | disposition home or self-care (01) ==
LOC: RADNMMAIN 07:55
PROVIDERS: ATTEND Internal Medicine
DX: I51.9 Heart disease, unspecified (principal); E78.00 Pure hypercholesterolemia, unspecified
CPT/HCPCS: 93017; 78452; A9500

== ENCOUNTER → 2025-04-30 | Outpatient (CLI) | payer MEDICARE ==
--- NOTE | 2025-04-30 07:36 | US ---
EXAMINATION TYPE: US liver DATE OF EXAM: 04/30/2025 COMPARISON: CT urogram 06/07/2016 CLINICAL INDICATION: Female, 64 years old with history of R79.89; ELEVATED LFT TECHNIQUE: Grayscale and color Doppler imaging of the right upper quadrant. FINDINGS: EXAM MEASUREMENTS: Liver Length: 13.6 cm Gallbladder Wall: 0.2 cm CBD: 0.3 cm, color Doppler imaging was utilized to isolate the common bile duct for measurement. Right Kidney: 10.8X5.1X4.2 cm SAP SPECIALIST NOTES: SLIGHTLY LIMITED VIEWS DUE TO OVERLYING BOWEL/GAS Pancreas: Tail obscured by overlying bowel gas Liver: heterogenous course echotexture, slightly obscured by bowel/gas, intercostal views used Gallbladder: No stones seen Evidence for sonographic Foley's sign: No CBD: wnl Right Kidney: No hydronephrosis or masses seen The visualized portions of pancreas unremarkable. The liver demonstrates a heterogenous coarse echote xture without focal lesion identified. No overt surface nodularity. The gallbladder demonstrates no s tones, wall thickening or surrounding fluid. Negative sonographic Foley's sign. Common bile duct is within normal limits. Right kidney demonstrates no hydronephrosis, shadowing calculus or solid mass. IMPRESSION: Nonspecific heterogenous coarsened echotexture of the liver without focal lesion. Findings suggest no nspecific hepatocellular disease. [facility], , 04/30/2025 7:33 AM
== END | disposition home or self-care (01) ==
LOC: RADUSWWP 06:52
PROVIDERS: ATTEND Internal Medicine
DX: R79.89 Other specified abnormal findings of blood chemistry (principal)
CPT/HCPCS: 76705

== ENCOUNTER → 2025-05-14 | Outpatient (CLI) | payer MEDICARE ==
--- NOTE | 2025-05-14 11:34 | MM ---
Reason for Exam: Screening (asymptomatic). Last mammogram was performed 1 year(s) and 1 month(s) ago. Patient History: Menarche at age 12. First Full-Term at age 38. Late child-bearing (after 30). Postmenopausal. 03/01/2022, US discontinued breast bx RT on the right side. Risk Values: Susan 5 year model risk: 2.3%. NCI Lifetime model risk: 8.6%. Prior Study Comparison: 04/09/2024 Bilateral MG 3D screening mammo w/cad, [facility]. 04/12/2024 Left MG 3D work up w/cad LT, [facility]. 10/14/2024 Left MG 3D diag mammo w/cad LT, [facility]. Tissue Density: The breasts are heterogeneously dense, which may obscure small masses. Findings: Analyzed By CAD. Right breast: There is no suspicious group of microcalcifications or new suspicious mass. Left breast: There is no suspicious group of microcalcifications or new suspicious mass. Overall Assessment: Negative, BI-RAD 1 Management: Screening Mammogram of both breasts in [address] [facility] will attempt to contact patient to return for supplemental views and ultrasound if indicated. Patient should continue monthly self-breast exams. A clinical breast exam by your physician is recommended on an annual basis. This exam should not preclude additional follow-up of suspicious palpable abnormalities. Note on Susan scores and lifetime risk: 1. A Susan score greater than 3% is considered moderate risk. If this is the case, consider specialist referral to assess eligibility for a risk reducing agent. 2. If overall lifetime risk for the development of breast cancer is 20% or higher, the patient may qualify for future screening with alternating mammogram and breast MRI. [facility], , 05/14/2025 11:07 AM. Electronically signed and approved by: Dagoberto Argueta DO
== END | disposition home or self-care (01) ==
LOC: RADMAMWWP 08:50
PROVIDERS: ATTEND Internal Medicine
DX: Z12.31 Encounter for screening mammogram for malignant neoplasm of breast (principal); R92.333 Mammographic heterogeneous density, bilateral breasts; Z78.0 Asymptomatic menopausal state
CPT/HCPCS: 77063; 77067